=== PATIENT | male | born 1955 | race Caucasian/White ===

== ENCOUNTER 2019-07-25 18:14 | Emergency (ER) | payer OTHER ==
[2019-07-25] MEDS ORDERED: SODIUM CHLORIDE 0.9% 1,000 ML IV ONE (18:47)
[2019-07-25] MEDS ORDERED: PROMETHAZINE INJ 25 MG in SODIUM CHLORIDE 0.9% 50 ML IV STA (18:47)
[2019-07-25] MEDS ORDERED: diphenhydrAMINE INJ 50 MG/ML VIAL IVP STA (18:47)
[2019-07-25 18:56] LABS: BASOPHILS % (AUTO) 0.4 %; EOSINOPHILS % (AUTO) 0.2 %; HGB - HEMOGLOBIN 14.9 g/dL (14.0-18.0); LYMPHOCYTES # (AUTO) 1.4 10^3/uL (1.5-3.5); LYMPHOCYTES % (AUTO) 13.9 %; MEAN CORPUSCULAR HEMOGLOBIN 28.8 pg (27.0-31.0); MEAN CORPUSCULAR HGB CONC 32.9 g/dL (32.0-36.0); MEAN CORPUSCULAR VOLUME 87.6 fL (80.0-94.0); MEAN PLATELET VOLUME 9.7 fL (7.4-11.4); MONOCYTES # (AUTO) 0.4 10^3/uL (0.0-1.0); MONOCYTES % (AUTO) 4.5 %; NEUTROPHILS # (AUTO) 7.8 10^3/uL (1.5-6.6); NEUTROPHILS % (AUTO) 80.4 %; PLT - PLATELET COUNT 291 10^3/uL (130-450); RED BLOOD COUNT 5.17 10^6/uL (4.70-6.10); WHITE BLOOD COUNT 9.7 x10^3/uL (4.8-10.8)
[2019-07-25 19:07] LABS: CALCIUM 10.1 mg/dL (8.5-10.3); CREATININE 1.3 mg/dL (0.6-1.2)
[2019-07-25] MEDS ORDERED: diazePAM INJ 5 MG/ML SYRINGE IVP STA (19:21)
--- NOTE | 2019-07-25 19:39 | ED Physician Documentation ---
History of Present Illness - Stated complaint Stated Complaint: VERTIGO - Chief complaint Chief Complaint: Neuro - History obtained from History obtained from: Patient, Family - History of Present Illness Timing: Today Pain level max: 0 Pain level now: 0 - Additonal information Additional information: 64-year-old male has felt like the room is been spinning on time for the past 3 hours. Has never had vertigo before. No recent illnesses. He states that his left ear has been bothering him as well. He has chronic tinnitus in that ear. No focal neurological deficits. No difficulty with words. No visual changes. Worse with movement and better with rest. Better closing his eyes. Review of Systems Ten Systems: 10 systems reviewed and negative Constitutional: denies: Fever, Chills Respiratory: denies: Cough GI: denies: Abdominal Pain, Nausea, Vomiting, Diarrhea Skin: denies: Rash Musculoskeletal: denies: Neck pain, Back pain Neurologic: denies: Focal weakness, Numbness, Headache PD PAST MEDICAL HISTORY - Past Medical History Past Medical History: Yes Cardiovascular: Hypertension Respiratory: None Neuro: None Endocrine/Autoimmune: Type 2 diabetes GI: None : None HEENT: None Psych: None Musculoskeletal: None Derm: None - Past Surgical History Past Surgical History: Yes General: Bowel surgery, Colonoscopy Ortho: Other - Present Medications Home Medications: Ambulatory Orders Medication Instructions Recorded Confirmed Ibuprofen [Motrin] 800 mg PO Q8H PRN #30 tablet 11/16/12 Losartan [Cozaar] 0 mg PO 11/16/12 11/16/12 Metoprolol Succinate [Toprol Xl] 0 mg PO ONCE 11/16/12 11/16/12 hydroCHLOROthiazide [Hydrodiuril] 0 mg PO 11/16/12 11/16/12 Meclizine HCl 25 - 50 mg PO Q6H PRN #20 tab.chew 07/25/19 Ondansetron Odt [Zofran] 4 mg TL Q6H PRN #10 tablet 07/25/19 - Allergies Allergies/Adverse Reactions: Allergies Allergy/AdvReac Type Severity Reaction Status Date / Time No Known Drug Allergies Allergy Verified 07/25/19 18:19 - Social History Does the pt smoke?: No Smoking Status: Never smoker Does the pt drink ETOH?: Yes Does the pt have substance abuse?: No - Immunizations Immunizations are current?: Yes - POLST Patient has POLST: No PD ED PE NORMAL - Vitals Vital signs reviewed: Yes - General General: Alert and oriented X 3, No acute distress - HEENT HEENT: PERRL, EOMI, Ears normal, Moist mucous membranes, Other (Horizontal nystagmus, fast portion to the left) - Neck Neck: Supple, no meningeal sign - Cardiac Cardiac: RRR, Strong equal pulses - Respiratory Respiratory: No respiratory distress, Clear bilaterally - Abdomen Abdomen: Soft, Non tender, Non distended - Derm Derm: Warm and dry - Neuro Neuro: Alert and oriented X 3, ice crusher 2-12 intact, No motor deficit, No sensory deficit, Normal speech Eye Opening: Spontaneous Motor: Obeys Commands Verbal: Oriented GCS Score: 15 - Psych Psych: Normal mood, Normal affect Results - Vitals Vitals: Vital Signs - 24 hr 07/25/19 18:20 Temperature 36.6 C Heart Rate 54 L Respiratory 17 Rate Blood Pressure 116/69 O2 Saturation 99 Oxygen O2 Source Room air - Labs Labs: Laboratory Tests 07/25/19 07/25/19 18:37 18:55 WBC 9.7 RBC 5.17 Hgb 14.9 Hct 45.3 MCV 87.6 MCH 28.8 MCHC 32.9 RDW 14.0 Plt Count 291 MPV 9.7 Neut # (Auto) 7.8 H Lymph # (Auto) 1.4 L Mclennan # (Auto) 0.4 Eos # (Auto) 0.0 Baso # (Auto) 0.0 Absolute Nucleated RBC 0.00 Nucleated RBC % 0.0 Sodium 141 Potassium 3.7 Chloride 99 L Carbon Dioxide 28 Anion Gap 14.0 H BUN 19 Creatinine 1.3 H Estimated GFR (MDRD) 56 L Glucose 184 H Calcium 10.1 PD MEDICAL DECISION MAKING - ED course Complexity details: reviewed results, re-evaluated patient, considered differential, d/w patient, d/w family ED course: Patient feels better after IV fluids, Phenergan, Benadryl, Valium and Cogentin. Nystagmus is nearly resolved. Able to turn his head without feeling nauseated. Still has mild dizziness. Normal cerebellar testing. No evidence of cerebellar stroke. Cerebellar testing was tested after medications as he could not tolerate it initially. Patient and family counseled regarding signs and symptoms for which I believe and urgent re-evaluation would be necessary. Patient with good understanding of and agreement to plan and is comfortable going home at this time This document was made in part using voice recognition software. While efforts are made to proofread this document, sound alike and grammatical errors may occur. Departure - Departure Disposition: 01 Home, Self Care Clinical Impression: BPPV (benign paroxysmal positional vertigo) Qualifiers: Laterality: left Qualified Code(s): H81.12 - Benign paroxysmal vertigo, left ear Condition: Good Instructions: ED BPV Vertigo Follow-Up: EDGARD ESTRADA MD [Primary Care Provider] - Within 1 week Prescriptions: Meclizine HCl 25 - 50 mg PO Q6H PRN #20 tab.chew PRN Reason: Vertigo Ondansetron Odt [Zofran] 4 mg TL Q6H PRN #10 tablet PRN Reason: Nausea / Vomiting Comments: Return if you worsen. This should improve over the next 24 hours. Your left ear appears affected. You can try the Marquez maneuver or half somersault maneuver at home when your nausea is improved. You can find these videos on [employer].
[2019-07-25] MEDS ORDERED: BENZTROPINE 2 MG/2 ML VIAL IVP STA (19:56)
[2019-07-25 20:53] VITALS: BP 159/83
== END 2019-07-25 20:57 | disposition home or self-care (01) ==
LOC: ED 18:14
DX: H81.12 Benign paroxysmal vertigo, left ear (principal); I10 Essential (primary) hypertension; E11.9 Type 2 diabetes mellitus without complications
CPT/HCPCS: 36415; 80048; 85025; 96365; 96375; 99284; 99285; J0515; J1200; J7040

== ENCOUNTER 2021-06-06 16:38 | Outpatient (CLI) | payer OTHER ==
--- NOTE | 2021-06-07 07:29 | XRAY Report ---
PROCEDURE: Chest 2 View X-Ray INDICATIONS: COUGH TECHNIQUE: 2 view(s) of the chest. COMPARISON: None. FINDINGS: Surgical changes and devices: None. Lungs and pleura: No pleural effusions or pneumothorax. Lungs are clear. Mediastinum: Mediastinal contours are normal. Heart size is normal. Bones and chest wall: No suspicious bony abnormalities. Soft tissues appear unremarkable. IMPRESSION: Chest without acute cardiopulmonary abnormalities. No focal airspace disease. Reviewed by: Tello Dexter MD on 06/07/2021 7:28 AM [facility] Approved by: Tello Dexter MD on 06/07/2021 7:28 AM [facility] Station ID: [id number]
== END 2021-06-06 23:59 | disposition home or self-care (01) ==
LOC: DI.N 16:38
PROVIDERS: ATTEND Physician Assistant
DX: R05.8 Other specified cough (principal); U07.1 COVID-19

== ENCOUNTER 2021-09-27 10:23 | Outpatient (CLI) | payer OTHER ==
--- NOTE | 2021-09-27 11:27 | SLEEP CARE CONSULTATION ---
Information from patient questionnaire entered by Osei Jimenes MA. I have reviewed and concur with the information entered by Osei Jimenes MA. This document represents the service I personally performed and the decisions made by , Vanessa Sheikh ARNP. History of Present Illness Service Date and Time: 09/27/2021 1023 Reason for Visit: New patient (ON CPAP, (RESMED)), Previously diagnosed sleep apnea, sleep apnea on CPAP therapy Chief Complaint: reports: Other (ANNUAL) Date of Onset: OVER 20 YEARS Usual bedtime: 1130 PM Time it takes to fall asleep: 10-20 minutes Snores at night: Yes Observed to quit breathing while asleep: Yes Number of times waking at night: 2 OR MORE Reasons for waking at night: reports: Snoring, Pain, Bathroom, Other Toss, Turn, or Twitch while sleeping: Yes Recalls having dreams: Yes Usually gets out of bed at: [id number] Feels refreshed in the morning: No Morning headache: No Sleepy or fatigued during the day: Yes Ever fallen asleep while driving: No Takes day naps: Yes Dreams during day naps: No Prior sleep studies: Yes Year and Where: November 2012, [facility] Type of Sleep Study: Polysomnography Additional HPI information: LOKESH NAPIER was previously diagnosed to have extremely severe, AHI 97.3, obstructive sleep apnea-hypopnea syndrome and comes in today to establish care for CPAP therapy. - Parasomnia Symptoms Ever been unable to move upon waking from sleep: No Walks in sleep: No Talks in sleep: No Ever acted out dreams in sleep: No Ever felt weak in the knees when startled or emotional: No Bothered by creepy, crawly, restless sensations in legs: Yes Problems with memory or concentration: Yes CPAP Compliance Data - Data Reviewed with Patient Average duration of nightly device use: 7 hours 33 minutes Compliance rate %: 95 (180 days) Current pressure setting (cmH2O): 14-18 Average residual AHI: 2.3 Central apnea: 1.3 Obstructive apnea: 0.6 Average large leak: 15.0 L/min Compliance data discussion: He has been on a CPAP since 2012. He has a ResMed Airsense 10 CPAP that he just got new machine in March 2021. He is using a full face ResMed Mirage Quattro mask. He last changed to cushion about 1-1.5 months ago. He does have a backup mask set if needed. He is using [employer] for his supplies. Subjective Missed days of use due to: reports: other (power outages) Patient concerns: reports: mask leak noise (just needs adjustment of cushion replacement; sleeps on side). denies: aerophagia, mask discomfort, air blowing in eyes, condensation in mask/hose, nasal congestion, dry mouth, nose, throat, epistaxis Observed to snore while using device: No Current pressure setting perceived as: comfortable On therapy, patient: reports: sleeping better, awakening more refreshed, being more awake and alert during the day, more rested overall. 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 Patient is and lives in [place]. Have you smoked in the past 12 months: No Cigarettes per day (20/pack): 15 Years of smokin Quit date: 1980 Smoking Pack Years: 1.4 Alcohol use: No Caffeine use: Yes Caffeine amount and frequency: 2 X DAILY Family History Family history of sleep disordered breathing: Yes Family Hx Sleep Apnea: Father: Snoring Allergies and Home Medications Drug allergies reviewed: Yes (NKDA) Home medication list reviewed: Yes Allergy and home medication list: Allergies No Known Drug Allergies Allergy (Verified 07/25/19 18:19) Medications: Losartan 100 mg HCTZ 25 mg Metoprolol ER 50 mg Amlodipine 10 mg Aspirin 81 mg Atorvastatin 40 mg Multivitamins Melatonin, prn Review of Systems Weight gain over past 5 years: 10 lbs in last 4 months since Covid infection Weight loss over past 5 years: 20 Cardiovascular: reports: high blood pressure, leg or foot swelling Respiratory: reports: shortness of breath Ear/Nose/Throat: reports: nasal congestion Endocrine: reports: sluggishness Musculoskeletal: reports: joint pain, other (TUMOR REMOVED FROM PARONEAL NERVE) Physical Exam Vital signs obtained and entered by: Wandy JIMENES CMA [facility] Blood Pressure: 135/71 (PULSE 61, RESP 18, RIGHT,) Heart Rate: 62 O2 Saturation: 98 (CLOTH MASK) Height: 5 ft 9 in Weight: 250 lb (CLOTHES) Body Mass Index: 36.9 BMI Classification: Obese Neck circumference: 17 (INCHES) Heart: regular rate and rhythm Lungs: clear bilaterally Impression and Plan 1. Obstructive Sleep Apnea-Hypopnea Syndrome, extremely severe, with good treatment compliance and good apnea control. On CPAP therapy, the patient has better sleep quality and is more rested overall. He is establishing care with this office today. He has a new CPAP that he started using in June. He has significant improvement of his sleep apnea with occasional mask leaks. He just adjusts his mask as needed to reduce leaks or changes out the mask cushion. He has not other complaints or issues with CPAP use. Patient's apnea severity and rationale for treatment to reduce apnea, improve sleep quality and reduce cardiovascular and cerebrovascular events was reviewed. I also reviewed the benefit of consistent device use of CPAP for hypertension and diabetes. 2. Obesity, unspecified. Patient has gained weight recently due to Covid infection but is trying to lose the weight. Currently patients BMI is 36.9. Obesity increases the risk of apnea, CPAP pressure requirements and overall health risks especially cardiovascular and diabetes. Thus patient is advised to continue to try to lose weight. Weight loss can be done with reducing portion size, reducing refined foods and balancing content with vegetables, fruit and whole grain foods. In addition, patient encouraged to get regular exercise. The patient's CPAP pressure range should accommodate some weight loss. Symptoms to report for additional pressure adjustment discussed. * Continue auto CPAP pressure at 14-18 cmH2O * Notify me if snoring with mask or feeling that the pressure is too much or too little * Cpntinue to try to lose weight * Call this office if any problems using CPAP * Return for follow up in 1 year, or sooner if concerns arise Counseling Topics: Spare mask, Weight loss health impact Visit Type: In Office Time Spent with Patient (minutes): 43 Provider Statement: I spent 100% of the Face to Face Visit with the patient with greater than 50% spent counseling the patient and coordination of care.
[2021-09-27 11:31] VITALS: BP 135/71
== END 2021-09-27 10:24 | disposition home or self-care (01) ==
LOC: SC 10:23
PROVIDERS: ATTEND Nurse Practitioner Family
DX: G47.33 Obstructive sleep apnea (adult) (pediatric) (principal); E66.9 Obesity, unspecified; Z68.36 Body mass index [BMI] 36.0-36.9, adult; Z87.891 Personal history of nicotine dependence
CPT/HCPCS: 99203; 99212

== ENCOUNTER 2022-10-02 09:37 | Outpatient (CLI) | payer MEDICARE, OTHER ==
[2022-10-02 10:25] VITALS: BP 126/68
--- NOTE | 2022-10-02 10:25 | SLEEP CARE CONSULTATION ---
Information from patient questionnaire entered by Greyson Sanabria. I have reviewed and concur with the information entered by Greyson Sanabria. This document represents the service I personally performed and the decisions made by me, Vanessa Sheikh ARNP. History of Present Illness Service Date and Time: 10/02/2022 0937 Previous diagnosis: Extremely Severe, Obstructive Sleep Apnea-Hypopnea Syndrome AHI: 97.3 (in 2012) Reason for follow up: annual (LAST SEEN 09/2021) Equipment type: CPAP (RESMED Airsense 10, s/u 06/2019) Equipment obtained from: [employer] (getting supplies) Mask style: Full face (Quattro) Backup mask available: Yes (old mask) Last cushion change: last night Prior sleep studies: Yes Year and Where: November 2012, [facility] Type of Sleep Study: Polysomnography HPI additional information: LOKESH NAPIER was diagnosed to have extremely severe, AHI 97.3, obstructive sleep apnea-hypopnea syndrome and returned today for CPAP therapy annual follow-up. Sleep Study - Results Type of Sleep Study: Polysomnography Prior sleep studies: Yes Year and Where: November 2012, [facility] CPAP Compliance Data - Data Reviewed with Patient Average duration of nightly device use: 7 HRS 34 MINS Compliance rate %: 99 (04/04/22-09/30/22; 180/180 days used) Current pressure setting (cmH2O): 14-18 Average residual AHI: 3.0 Central apnea: 1.6 Obstructive apnea: 0.3 Average large leak: 4.5 lpm Subjective Missed days of use due to: reports: other (power outage) Patient concerns: reports: condensation in mask/hose (little bit last night), nasal congestion (more allergy related in mornings and at beginning of night; in termittenly (seasonal)), dry mouth, nose, throat (sometimes). denies: aerophagia, mask discomfort, air blowing in eyes, mask leak noise, epistaxis Observed to snore while using device: No Current pressure setting perceived as: comfortable On therapy, patient: reports: sleeping better, awakening more refreshed, being more awake and alert during the day, more rested overall. denies: drowsiness while driving Initial [place] Sleepiness Scale score: 10 (09/2021) Current [place] Sleepiness Scale score: 8 (10/02/22) Allergies and Home Medications Known drug allergies: No Drug allergies reviewed: Yes Home medication list reviewed: Yes (no changes) Allergy and home medication list: Allergies No Known Drug Allergies Allergy (Verified 10/01/22 14:21) Review of Systems Review of systems same as previous: No (Covid, hospitalized; stiffening on left side of heart) Physical Exam Vital signs obtained and entered by: GREYSON Pham MA Blood Pressure: 126/68 (LEFT ARM) Cuff size: regular Heart Rate: 66 O2 Saturation: 98 Height: 5 ft 9 in Weight: 258 lb 12.8 oz Weight change since last visit: 8 lb gain Body Mass Index: 38.2 BMI Classification: Obese Impression and Plan 1. Obstructive Sleep Apnea-Hypopnea Syndrome, extremely severe, with good treatment compliance and good apnea control. On CPAP therapy, the patient has better sleep quality and is more rested overall. He had a rough year with his son having a heart attack and his own covid illness hospitalization and finding of heart wall stiffness with cardiac rehab. He is doing well now and in good spirits. Patient has significant improvement of their sleep apnea and is satisfied with current CPAP therapy. Patient's apnea severity and rationale for treatment to reduce apnea, improve sleep quality and reduce cardiovascular and cerebrovascular events was reviewed. I also reviewed the benefit of consistent device use of CPAP for hypertension and diabetes. 2. Obesity, unspecified. Currently patients BMI is 38.2. He states that he lost about 18 pounds and then regained weight after Covid illness. Obesity increases the risk of apnea, CPAP pressure requirements and overall health risks especially cardiovascular and diabetes. Thus patient is advised to continue to try to lose weight. * Continue auto CPAP pressure at 14-18 cmH2O * Update supplies * Notify me if snoring with mask or feeling that the pressure is too much or too little * Attempt to lose weight * Call this office if any problems using CPAP * Return for follow up in 1 year, or sooner if concerns arise Counseling Topics: Spare mask, Weight loss health impact Visit Type: In Office Time Spent with Patient (minutes): 21 Provider Statement: I spent 100% of the Face to Face Visit with the patient with greater than 50% spent counseling the patient and coordination of care.
== END 2022-10-02 09:38 | disposition home or self-care (01) ==
LOC: SC 09:37
PROVIDERS: ATTEND Nurse Practitioner Family
DX: G47.33 Obstructive sleep apnea (adult) (pediatric) (principal); E66.9 Obesity, unspecified; Z68.38 Body mass index [BMI] 38.0-38.9, adult; Z86.16 Personal history of COVID-19
CPT/HCPCS: 99213; G0463; 99212

== ENCOUNTER 2023-09-21 08:49 | Outpatient (CLI) | payer MEDICARE, OTHER ==
--- NOTE | 2023-09-21 17:33 | Ultrasound Report ---
PROCEDURE: Duplex Ext Veins Bilateral INDICATIONS: RAFAEL GARCIA PA-C TECHNIQUE: Real-time imaging, as well as color and pulse Doppler interrogation, were performed of the deep veins of both legs from the inguinal ligament to the popliteal fossa. Attempted visualization of the calf veins was performed. COMPARISON: None FINDINGS: The deep veins are normally compressible, and free of intraluminal thrombus. Color and pu lse Doppler demonstrate normal phasic intravascular flow. There is normal augmentation response to d istal compression maneuver. IMPRESSION: No deep venous thrombosis of the visualized lower extremities. Reviewed by: Gifty Jefferson MD on 09/21/2023 5:32 PM PDT Approved by: Gifty Jefferson MD on 09/21/2023 5:32 PM PDT Station ID: [id number]
--- NOTE | 2023-09-21 17:35 | Ultrasound Report ---
PROCEDURE: Aorta Screening INDICATIONS: HX OF SMOKING TECHNIQUE: Real time scanning was performed of the aorta and iliac arteries, with image documentatio n. COMPARISON: None. FINDINGS: Aorta: Proximal aortic diameter measures 3.2 x 3.2 cm. Mid-aorta measures 2.2 x 2.2 cm. Distal aor tic diameter is not well seen Iliac arteries: Not well seen. IMPRESSION: Limited exam with incomplete visualization of the distal aorta and common iliacs. Visualized portions are unremarkable. Recommended intervals for follow-up imaging of ectatic aortas and abdominal aortic aneurysms, per ACR consensus guidelines: 2.5-2.9 cm: 5 years 3.0-3.4 cm: 3 years 3.5-3.9 cm: 2 years 4.0-4.4 cm: 1 year 4.5-4.9 cm: 6 months + endovascular referral 5.0-5.5 cm: 3-6 months + endovascular referral Reviewed by: Gifty Jefferson MD on 09/21/2023 5:33 PM PDT Approved by: Gifty Jefferson MD on 09/21/2023 5:33 PM PDT Station ID: [id number]
--- NOTE | 2023-09-21 17:36 | Ultrasound Report ---
PROCEDURE: Ankle Brachial Index INDICATIONS: DIMINISHED PULSES, EDEMA TECHNIQUE: Ankle-brachial indices were obtained bilaterally and recorded. COMPARISONS: None. FINDINGS: Right ankle brachial index (KATHRIN): 1.2 Left ankle brachial index (KATHRIN): 1.2 Brachial blood pressures on the right and left measure 139/74 and 143/70 respectively. Ankle blood pressures measure 181/79 170/77 on the right and left resected leg. Healing potential: Ankle pressures >55 mm Hg in non-diabetics and >80 mm Hg in diabetics are likely to achieve primary h ealing of ischemic foot ulcers. Toe pressures >30 mm Hg are likely to achieve primary healing of ischemic foot ulcers, toe or transme tatarsal amputations. IMPRESSION: Normal exam. Reviewed by: Gifty Jefferson MD on 09/21/2023 5:34 PM PDT Approved by: Gifty Jefferson MD on 09/21/2023 5:34 PM PDT Station ID: [id number]
== END 2023-09-21 08:50 | disposition home or self-care (01) ==
LOC: DI 08:49
PROVIDERS: ATTEND Physician Assistant
DX: R09.89 Other specified symptoms and signs involving the circulatory and respiratory systems (principal); R60.0 Localized edema; Z13.6 Encounter for screening for cardiovascular disorders; Z87.891 Personal history of nicotine dependence
CPT/HCPCS: 93922; 93970

== ENCOUNTER 2023-10-03 08:55 | Outpatient (CLI) | payer MEDICARE, OTHER ==
--- NOTE | 2023-10-03 09:14 | Sleep Patient Instructions ---
Sleep Center Visit Summary - Patient Visit Information Reason for Visit: Annual follow-up - Patient Instructions Additional Instructions: You will continue with CPAP therapy with pressure set at 14-18 cmH2O. A supply prescription will be updated with your DME. We encourage you to continue to try to lose weight. Please follow up with the sleep care office in 1 year. - Clinic Information Contact: [facility] [address] [place] [email or web address] T: [phone]
--- NOTE | 2023-10-03 09:20 | SLEEP CARE CONSULTATION ---
Information from patient questionnaire entered by Greyson Sanabria. I have reviewed and concur with the information entered by Greyson Sanabria. This document represents the service I personally performed and the decisions made by me, Vanessa Sheikh ARNP. History of Present Illness Service Date and Time: 10/03/2023 0900 Previous diagnosis: Extremely Severe, Obstructive Sleep Apnea-Hypopnea Syndrome AHI: 97.3 (in 2012) Reason for follow up: annual (LAST SEEN 09/2022) Equipment type: CPAP (RESMED Airsense 10, s/u 06/2019) Equipment obtained from: [employer] (getting supplies) Mask style: Full face (Quattro) Backup mask available: Yes Last cushion change: last saturday Prior sleep studies: Yes Year and Where: November 2012, [facility] Type of Sleep Study: Polysomnography HPI additional information: LOKESH NAPIER was diagnosed to have extremely severe, AHI 97.3, obstructive sleep apnea-hypopnea syndrome and returned today for CPAP therapy annual follow-up. Sleep Study - Results Type of Sleep Study: Polysomnography Prior sleep studies: Yes Year and Where: November 2012, [facility] CPAP Compliance Data - Data Reviewed with Patient Average duration of nightly device use: 7 HRS 46 MINS Compliance rate %: 100 (10/01/22-09/30/23; 365/365 days used) Current pressure setting (cmH2O): 14-18 Average residual AHI: 3.3 Central apnea: 1.8 Obstructive apnea: 0.6 Hypopnea: 0.2 Average large leak: 3 L/min Subjective Patient concerns: reports: dry mouth, nose, throat (little bit of dry mouth, occasional). denies: aerophagia, mask discomfort, air blowing in eyes, mask leak noise, condensation in mask/hose, nasal congestion, epistaxis Observed to snore while using device: No Current pressure setting perceived as: comfortable On therapy, patient: reports: sleeping better, awakening more refreshed, being more awake and alert during the day, more rested overall. denies: drowsiness while driving Initial [place] Sleepiness Scale score: 10 (09/2021) Current [place] Sleepiness Scale score: 10 (10/03/23) Allergies and Home Medications Known drug allergies: No Drug allergies reviewed: Yes Home medication list reviewed: Yes (as listed) Allergy and home medication list: Allergies No Known Drug Allergies Allergy (Verified 10/01/23 09:22) Home Medications Medication Instructions Recorded Confirmed Last Taken Type Ibuprofen [Motrin] 800 mg PO Q8H PRN #30 tablet 11/16/12 10/02/22 Unknown Rx Losartan [Cozaar] See Rx Instructions .ROUTE .COMPLEX 11/16/12 10/02/22 Unknown History Metoprolol Succinate [Toprol Xl] 0 mg PO ONCE 11/16/12 10/02/22 Unknown History hydroCHLOROthiazide [Hydrodiuril] See Rx Instructions .ROUTE .COMPLEX 11/16/12 10/02/22 Unknown History Meclizine HCl 25 - 50 mg PO Q6H PRN #20 tab.chew 07/25/19 10/02/22 Unknown Rx Ondansetron Odt [Zofran] 4 mg TL Q6H PRN #10 tablet 07/25/19 10/02/22 Unknown Rx Amlodipine Besylate [Norvasc] See Rx Instructions .ROUTE .COMPLEX 10/02/22 10/02/22 Unknown History Atorvastatin [Lipitor] See Rx Instructions .ROUTE .COMPLEX 10/03/23 10/03/23 Unknown History Metformin HCl [Metformin ER See Rx Instructions .ROUTE .COMPLEX 10/03/23 10/03/23 Unknown History Osmotic] Spironolactone [Aldactone] See Rx Instructions .ROUTE .COMPLEX 10/03/23 10/03/23 Unknown History Review of Systems Review of systems same as previous: No (PRECANCER SPOTS BOTH EARS TREATED ON 09/26/23) Physical Exam Vital signs obtained and entered by: GREYSON Pham MA Blood Pressure: 170/87 (LEFT ARM) Cuff size: regular Heart Rate: 64 O2 Saturation: 95 Height: 5 ft 9 in Weight: 254 lb 3.2 oz Weight change since last visit: 4 lb loss Body Mass Index: 37.5 BMI Classification: Obese Impression and Plan 1. Obstructive Sleep Apnea-Hypopnea Syndrome, extremely severe, with good treatment compliance and good apnea control. On CPAP therapy, the patient has better sleep quality and is more rested overall. He has had a change in blood pressure medication to try to reduce blood pressures. He is monitoring his pressure at home with average pressures at 130s systolic. His new blood pressure medication started in mid-September. He took it this morning but also had some coffee this morning. He is feeling well, no complaints. Patient has significant improvement of their sleep apnea and is satisfied with current CPAP therapy. Patient denies problems with oral dryness, nasal congestion, epistaxis, skin irritation or aerophagia. Patient's apnea severity and rationale for treatment to reduce apnea, improve sleep quality and reduce cardiovascular and cerebrovascular events was reviewed. I also reviewed the benefit of consistent device use of CPAP for hypertension, diabetes. 2. Obesity, unspecified. Currently patients BMI is 37.5. He has lost weight. He is cutting carbs and reducing portions. Obesity increases the risk of apnea, CPAP pressure requirements and overall health risks especially cardiovascular and diabetes. Thus patient is advised to lose weight. * Continue auto CPAP pressure at 14-18 cmH2O * Update supply prescription * Notify me if snoring with mask or feeling that the pressure is too much or too little * Attempt to lose weight * Call this office if any problems using CPAP * Return for follow up in 12 months, or sooner if concerns arise Counseling Topics: Spare mask, Weight loss health impact Prescriptions: Device supplies Follow up with Sleep Care in: 1 year Visit Type: In Office Time Spent with Patient (minutes): 20 Provider Statement: I spent 100% of the Face to Face Visit with the patient with greater than 50% spent counseling the patient and coordination of care.
[2023-10-03 09:21] VITALS: BP 170/87; O2SAT 95
== END 2023-10-03 08:56 | disposition home or self-care (01) ==
LOC: SC 08:55
PROVIDERS: ATTEND Nurse Practitioner Family
DX: G47.33 Obstructive sleep apnea (adult) (pediatric) (principal); E66.9 Obesity, unspecified; Z68.37 Body mass index [BMI] 37.0-37.9, adult
CPT/HCPCS: 99213; G0463; 99212

== ENCOUNTER 2023-11-13 14:46 | Outpatient (CLI) | payer MEDICARE, OTHER | END 2023-11-13 14:47 | disposition home or self-care (01) | LOC: DI 14:46 | PROVIDERS: ATTEND Physician Assistant | DX: I27.20 Pulmonary hypertension, unspecified (principal) | CPT/HCPCS: 93307 ==